=== PATIENT | female | born 1950 | race African-American/Black ===

== ENCOUNTER 2022-02-24 14:20 | Emergency (ER) | payer OTHER ==
[~2022-02-24] VITALS: Ht 170.2 cm; Wt 86.0 kg
[~2022-02-24 14:20] MED LIST: ASPI-986 PO; ATEN50TA PO; FERR-63 PO; FURO40TA5 PO; LOSA50TA41 PO
[2022-02-24 16:45] LABS: BASOPHILS % 0.8 % (0.0-2.0); EOSINOPHILS % 0.5 % (0.0-5.0); HEMATOCRIT. 33.7 % (36.0-48.0); LYMPHOCYTES % 21.9 % (20.0-50.0); MEAN CORPUSCULAR HEMOGLOBIN 26.6 pg (28.0-32.0); MEAN CORPUSCULAR VOLUME 81.7 fL (81.0-99.0); MEAN PLATELET VOLUME 9.7 fl (7.4-10.4); MONOCYTES % 12.2 % (2.0-8.0); NEUTROPHILS % 64.6 % (40.0-76.0); PLATELET 150 x1000/uL (130-400); RED BLOOD CELL COUNT 4.13 mill/uL (4.2-5.4); RED CELL DISTRIBUTION WIDTH 15.2 % (11.6-14.6)
[2022-02-24 16:49] LABS: CHLORIDE 106 mEq/L (98-107)
[2022-02-24 18:23] VITALS: BP 128/82
== END 2022-02-24 19:02 | disposition left against medical advice (07) ==
LOC: ER 14:20
DX: J81.0 Acute pulmonary edema (principal); I48.0 Paroxysmal atrial fibrillation; I10 Essential (primary) hypertension; D64.9 Anemia, unspecified; I69.351 Hemiplegia and hemiparesis following cerebral infarction affecting right dominant side; Z87.442 Personal history of urinary calculi; Z79.01 Long term (current) use of anticoagulants; Z79.82 Long term (current) use of aspirin
CPT/HCPCS: 36415; 71045; 80048; 83880; 84484; 85025; 85379; 99284

== ENCOUNTER 2022-02-26 08:30 | Inpatient (IN) | payer OTHER, MEDICAID ==
[~2022-02-26] VITALS: Ht 165.1 cm; Wt 89.4 kg
[2022-02-26 09:41] LABS: BASOPHILS % 0.7 % (0.0-2.0); EOSINOPHILS % 0.2 % (0.0-5.0); HEMATOCRIT. 35.2 % (36.0-48.0); HEMOGLOBIN. 11.2 g/dL (12.0-16.0); LYMPHOCYTES % 15.2 % (20.0-50.0); MEAN PLATELET VOLUME 9.3 fl (7.4-10.4); MONOCYTES % 12.3 % (2.0-8.0); NEUTROPHILS % 71.6 % (40.0-76.0); PLATELET 149 x1000/uL (130-400); RED BLOOD CELL COUNT 4.29 mill/uL (4.2-5.4); RED CELL DISTRIBUTION WIDTH 15.5 % (11.6-14.6)
[2022-02-26 09:47] LABS: CHLORIDE 109 mEq/L (98-107)
[2022-02-26] MEDS ORDERED: GUAIFENESIN 200MG/10ML SUGAR FREE UDC PO PRN (11:30)
[2022-02-26] MEDS ORDERED: ACETAMINOPHEN 325MG TABLET PO PRN (11:30)
[2022-02-26] MEDS ORDERED: ONDANSETRON HCL 4MG/2ML INJ IV PRN (11:30)
[2022-02-26] MEDS ORDERED: MAGNESIUM/ALUMINUM HYDROXIDE/SIMETHICONE 30ML UDC PO PRN (11:30)
[2022-02-26] MEDS ORDERED: CLONIDINE 0.1MG TABLET PO PRN (11:30)
[2022-02-26] MEDS ORDERED: LORAZEPAM 2MG/ML CPJ IV PRN (11:30)
[2022-02-26] MEDS ORDERED: MORPHINE SULFATE 2 MG/ML CPJ (NOT FOR IM USE) IV PRN (11:30)
[2022-02-26] MEDS ORDERED: ENOXAPARIN 40MG/0.4ML SYR SUBCUT SCH ×2 (11:30→13:00)
[2022-02-26] MEDS ORDERED: DIPHENHYDRAMINE 50MG/ML VIAL IV PRN (11:30)
[2022-02-26] MEDS ORDERED: DOCUSATE SODIUM 100MG CAPSULE PO PRN (11:30)
[2022-02-26] MEDS ORDERED: HYDRALAZINE 20MG/ML VIAL IV PRN (11:30)
[2022-02-26] MEDS ORDERED: HYDROCODONE/ACETAMINOPHEN 5/325MG TABLET PO PRN (11:30)
[2022-02-26] MEDS ORDERED: NALOXONE HCL 0.4MG/ML VIAL IV PRN (12:00)
[2022-02-26] MEDS: ASPIRIN 81MG TABLET PO SCH (13:00)
[2022-02-26] MEDS: FUROSEMIDE 40MG/4ML VIAL IVP SCH ×2 (13:15→17:00)
[2022-02-26 13:29] LABS: INR 1.1; PROTHROMBIN TIME 11.5 sec (9.6-11.0)
[2022-02-26] MEDS: SPIRONOLACTONE 25MG TABLET PO SCH (14:00)
[2022-02-26] MEDS: SODIUM CHLORIDE 0.9% INJ 3ML FLUSH IVF SCH ×2 (14:00→21:47)
[2022-02-26 14:42] LABS: CREATINE KINASE MB FRACTION 1.6 ng/mL (0.5-3.6)
[2022-02-26] MEDS ORDERED: ENOXAPARIN 40MG/0.4ML SYR SUBCUT NR (15:30)
[2022-02-26 17:07] LABS: CLARITY URINE CLEAR (CLEAR); COLOR URINE YELLOW (YELLOW); KETONES URINE NEGATIVE (NEGATIVE); LEUKOCYTE ESTERASE URINE NEGATIVE (NEGATIVE); NITRITE URINE NEGATIVE (NEGATIVE); OCCULT BLOOD URINE NEGATIVE (NEGATIVE); PH URINE 5.5 (4.5-8.0); PROTEIN URINE NEGATIVE (NEGATIVE); UROBILINOGEN URINE 0.2 E.U./dL (0.2-1.0)
[2022-02-26 17:28] LABS: *AMPHETAMINES SCREEN URINE NEGATIVE (NEGATIVE); *BARBITURATES SCREEN URINE NEGATIVE (NEGATIVE); *BENZODIAZEPINES SCREEN URINE NEGATIVE (NEGATIVE); *COCAINE SCREEN URINE NEGATIVE (NEGATIVE); CANNABINOID URINE SCREEN NEGATIVE (NEGATIVE); METHADONE URINE SCREEN NEGATIVE (NEGATIVE); OPIATES URINE SCREEN NEGATIVE (NEGATIVE); PHENCYCLIDINE URINE SCREEN NEGATIVE (NEGATIVE)
[2022-02-26] MEDS: DILTIAZEM HCL 60MG TABLET PO SCH (18:00)
[2022-02-26 18:45] VITALS: BP 116/74
[2022-02-26 20:00] VITALS: BP 124/84
[2022-02-26] MEDS: ENOXAPARIN 100MG/ML SYR SUBCUT SCH (21:47)
[2022-02-26] MEDS: IPRATROPIUM/ALBUTEROL 0.5-3(2.5)MG/3ML NEB HHN PRN (23:12)
[2022-02-26 23:36] LABS: CREATINE KINASE MB FRACTION 1.6 ng/mL (0.5-3.6)
[2022-02-27] VITALS (7 sets, daily range): BP systolic 106–136; BP diastolic 71–84
[2022-02-27] MEDS: DILTIAZEM HCL 60MG TABLET PO SCH ×5 (00:14→23:14)
[2022-02-27] MEDS ORDERED: FURO20TA4 MT (04:49)
[2022-02-27] MEDS ORDERED: ASPI-1497 MT (04:49)
[2022-02-27] MEDS ORDERED: ATEN100T MT (04:51)
[2022-02-27] MEDS ORDERED: ATOR10TA69 MT (04:51)
[2022-02-27] MEDS ORDERED: POTA25TA8 MT (04:51)
[2022-02-27] MEDS: IPRATROPIUM/ALBUTEROL 0.5-3(2.5)MG/3ML NEB HHN PRN (05:23)
[2022-02-27] MEDS: SODIUM CHLORIDE 0.9% INJ 3ML FLUSH IVF SCH ×3 (05:42→20:55)
[2022-02-27 06:56] LABS: BASOPHILS % 0.6 % (0.0-2.0); EOSINOPHILS % 0.4 % (0.0-5.0); HEMATOCRIT. 34.1 % (36.0-48.0); HEMOGLOBIN. 10.8 g/dL (12.0-16.0); MEAN CORPUSCULAR HEMOGLOBIN 26.2 pg (28.0-32.0); MEAN PLATELET VOLUME 9.9 fl (7.4-10.4); MONOCYTES % 11.6 % (2.0-8.0); NEUTROPHILS % 62.4 % (40.0-76.0); PLATELET 161 x1000/uL (130-400); RED BLOOD CELL COUNT 4.11 mill/uL (4.2-5.4); RED CELL DISTRIBUTION WIDTH 16.2 % (11.6-14.6)
[2022-02-27 07:44] LABS: CHLORIDE 107 mEq/L (98-107)
[2022-02-27] MEDS: FUROSEMIDE 40MG/4ML VIAL IVP SCH ×2 (09:11→17:46)
[2022-02-27] MEDS: SPIRONOLACTONE 25MG TABLET PO SCH (09:12)
[2022-02-27] MEDS: ENOXAPARIN 100MG/ML SYR SUBCUT SCH ×2 (09:12→20:55)
[2022-02-27] MEDS: ASPIRIN 81MG TABLET PO SCH (09:12)
[2022-02-27] MEDS: ALBUTEROL 6.7GM HFA INHALER ORI PRN ×2 (14:51→21:01)
[2022-02-28] VITALS: BP 128/74
[2022-02-28 04:00] VITALS: BP 140/85
[2022-02-28] MEDS: DILTIAZEM HCL 60MG TABLET PO SCH ×3 (05:16→18:00)
[2022-02-28] MEDS: SODIUM CHLORIDE 0.9% INJ 3ML FLUSH IVF SCH ×3 (05:16→21:09)
[2022-02-28 08:00] VITALS: BP 130/58
[2022-02-28] MEDS: FUROSEMIDE 40MG/4ML VIAL IVP SCH ×2 (08:48→17:23)
[2022-02-28] MEDS: APIXABAN 5 MG TABLET PO SCH ×2 (08:48→17:23)
[2022-02-28] MEDS: ASPIRIN 81MG TABLET PO SCH (08:48)
[2022-02-28] MEDS: SPIRONOLACTONE 25MG TABLET PO SCH (08:50)
[2022-02-28] MEDS: CARVEDILOL 3.125 MG TABLET PO SCH ×2 (09:30→21:00)
[2022-02-28 12:00] VITALS: BP 117/65
[2022-02-28] MEDS: SILDENAFIL CITRATE 20MG TABLET PO SCH ×2 (14:00→21:08)
[2022-02-28 16:00] VITALS: BP 114/91
[2022-02-28 20:00] VITALS: BP 111/66
[2022-03-01] VITALS: BP 119/67
[2022-03-01 04:00] VITALS: BP 105/70
[2022-03-01] MEDS: SILDENAFIL CITRATE 20MG TABLET PO SCH (05:10)
[2022-03-01] MEDS: SODIUM CHLORIDE 0.9% INJ 3ML FLUSH IVF SCH (05:10)
[2022-03-01] MEDS: DILTIAZEM HCL 60MG TABLET PO SCH ×2 (05:12)
[2022-03-01 06:17] LABS: BASOPHILS % 0.5 % (0.0-2.0); EOSINOPHILS % 1.6 % (0.0-5.0); HEMOGLOBIN. 10.6 g/dL (12.0-16.0); MEAN CORPUSCULAR HEMOGLOBIN 26.6 pg (28.0-32.0); MEAN CORPUSCULAR VOLUME 82.3 fL (81.0-99.0); MEAN PLATELET VOLUME 9.5 fl (7.4-10.4); MONOCYTES % 10.9 % (2.0-8.0); PLATELET 156 x1000/uL (130-400); RED BLOOD CELL COUNT 4.01 mill/uL (4.2-5.4); RED CELL DISTRIBUTION WIDTH 16.8 % (11.6-14.6)
[2022-03-01 08:00] VITALS: BP 98/70
[2022-03-01] MEDS: CARVEDILOL 3.125 MG TABLET PO SCH (09:00)
[2022-03-01] MEDS: SPIRONOLACTONE 25MG TABLET PO SCH (09:00)
[2022-03-01] MEDS: APIXABAN 5 MG TABLET PO SCH (10:19)
[2022-03-01] MEDS: ASPIRIN 81MG TABLET PO SCH (10:19)
[2022-03-01] MEDS: FUROSEMIDE 40MG/4ML VIAL IVP SCH (10:19)
[2022-03-01 12:00] VITALS: BP 100/75
[2022-03-01 14:48] VITALS: BP 106/75
== END 2022-03-01 17:25 | disposition home or self-care (01) | DRG 291 ==
LOC: ER 08:30 → EDBEDREQTM 10:29 → 8WST 11:21 → EDBEDREQTM 11:23 → EDBEDREQ 11:23 → ENRESERV 17:19
PROVIDERS: ADMIT Internal Medicine; ATTEND Internal Medicine
DX: I11.0 Hypertensive heart disease with heart failure (principal); I50.33 Acute on chronic diastolic (congestive) heart failure; I48.92 Unspecified atrial flutter; I48.0 Paroxysmal atrial fibrillation; E78.5 Hyperlipidemia, unspecified; I25.10 Atherosclerotic heart disease of native coronary artery without angina pectoris; I27.29 Other secondary pulmonary hypertension; I27.81 Cor pulmonale (chronic); E78.00 Pure hypercholesterolemia, unspecified; R74.01 Elevation of levels of liver transaminase levels; I42.9 Cardiomyopathy, unspecified; I34.0 Nonrheumatic mitral (valve) insufficiency; I36.1 Nonrheumatic tricuspid (valve) insufficiency; Z86.73 Personal history of transient ischemic attack (TIA), and cerebral infarction without residual deficits; Z87.891 Personal history of nicotine dependence; Z79.82 Long term (current) use of aspirin; Z79.899 Other long term (current) drug therapy
CPT/HCPCS: 36415; 71045; 80048; 80053; 80061; 80305; 81003; 82550; 82553; 83735; 83880; 84484; 85025; 93005; 93306; 93970; 94640; 99285; J1650; J1940; J2060; J2270

== ENCOUNTER 2022-07-26 15:46 | Emergency (ER) | payer MEDICARE, OTHER ==
[~2022-07-26] VITALS: Ht 160 cm; Wt 77.0 kg
[~2022-07-26 15:46] MED LIST changes: +ASPI-1497 MT; -ASPI-986 PO; -ATEN50TA PO; +ATOR10TA69 MT; -FERR-63 PO; +FURO20TA4 MT; -FURO40TA5 PO; -LOSA50TA41 PO; +POTA25TA8 MT
[2022-07-26] MEDS ORDERED: SODIUM CHLORIDE 0.9% 1,000 ML IV ONE (16:45)
[2022-07-26] MEDS ORDERED: DEXAMETHASONE 10 MG/ML VIAL IV ONE (16:45)
[2022-07-26] MEDS ORDERED: MORPHINE SULFATE 4 MG/ML CPJ (NOT FOR IM USE) IV ONE ×2 (16:45→18:30)
[2022-07-26 17:16] LABS: HEMATOCRIT. 36.4 % (36.0-48.0); HEMOGLOBIN. 11.8 g/dL (12.0-16.0); MEAN CORPUSCULAR HEMOGLOBIN 27.6 pg (28.0-32.0); MEAN CORPUSCULAR VOLUME 84.9 fL (81.0-99.0); MEAN PLATELET VOLUME 10.9 fl (7.4-10.4); PLATELET 173 x1000/uL (130-400); RED BLOOD CELL COUNT 4.29 mill/uL (4.2-5.4)
[2022-07-26 17:28] LABS: INR 1.1; PROTHROMBIN TIME 11.4 sec (9.6-11.0)
[2022-07-26 17:33] LABS: CHLORIDE 100 mEq/L (98-107)
[2022-07-26 17:34] LABS: PLATELET ESTIMATE NORMAL
[2022-07-26] MEDS ORDERED: OXYC-89 MT (21:19)
[2022-07-26] MEDS ORDERED: TIZA-191 MT (21:19)
[2022-07-26 22:30] VITALS: BP 147/82
== END 2022-07-26 22:52 | disposition home or self-care (01) ==
LOC: ER 15:46
DX: M54.41 Lumbago with sciatica, right side (principal); M47.897 Other spondylosis, lumbosacral region; I10 Essential (primary) hypertension; I48.91 Unspecified atrial fibrillation; E78.00 Pure hypercholesterolemia, unspecified; Z86.73 Personal history of transient ischemic attack (TIA), and cerebral infarction without residual deficits; Z79.01 Long term (current) use of anticoagulants
CPT/HCPCS: 36415; 72131; 80053; 83605; 85025; 85610; 96361; 96374; 96375; 96376; 99285; J1100; J2270; J7030

== ENCOUNTER 2022-10-26 20:04 | Emergency (ER) | payer OTHER, MEDICAID ==
[~2022-10-26] VITALS: Ht 157.5 cm; Wt 69.0 kg
[~2022-10-26 20:04] MED LIST changes: +OXYC-89 MT; +TIZA-191 MT
[2022-10-26 21:10] LABS: BASOPHILS % 0.3 % (0.0-2.0); EOSINOPHILS % 0.3 % (0.0-5.0); HEMATOCRIT. 37.8 % (36.0-48.0); HEMOGLOBIN. 12.2 g/dL (12.0-16.0); LYMPHOCYTES % 12.6 % (20.0-50.0); MEAN CORPUSCULAR HEMOGLOBIN 28.3 pg (28.0-32.0); MEAN CORPUSCULAR VOLUME 87.5 fL (81.0-99.0); MEAN PLATELET VOLUME 10.1 fl (7.4-10.4); MONOCYTES % 7.9 % (2.0-8.0); NEUTROPHILS % 78.9 % (40.0-76.0); PLATELET 173 x1000/uL (130-400); RED BLOOD CELL COUNT 4.32 mill/uL (4.2-5.4); RED CELL DISTRIBUTION WIDTH 15.9 % (11.6-14.6)
[2022-10-26 21:15] LABS: CHLORIDE 104 mEq/L (98-107)
[2022-10-26] MEDS ORDERED: SODIUM CHLORIDE 0.9% 500 ML IV ONE (23:30)
[2022-10-27 06:00] VITALS: BP 151/96
== END 2022-10-27 06:45 | disposition home or self-care (01) ==
LOC: ER 20:04
DX: R19.7 Diarrhea, unspecified (principal); I10 Essential (primary) hypertension; E78.00 Pure hypercholesterolemia, unspecified; I48.91 Unspecified atrial fibrillation; Z79.82 Long term (current) use of aspirin; Z86.73 Personal history of transient ischemic attack (TIA), and cerebral infarction without residual deficits
CPT/HCPCS: 36415; 71045; 80053; 83690; 83880; 84484; 85025; 93005; 99285; J7040

== ENCOUNTER 2022-10-31 22:47 | Inpatient (IN) | payer OTHER, MEDICAID ==
[~2022-10-31] VITALS: Ht 172.7 cm; Wt 83.0 kg
[2022-10-31 23:51] LABS: BASOPHILS % 0.5 % (0.0-2.0); EOSINOPHILS % 0.6 % (0.0-5.0); HEMATOCRIT. 32.3 % (36.0-48.0); HEMOGLOBIN. 9.9 g/dL (12.0-16.0); LYMPHOCYTES % 13.3 % (20.0-50.0); MEAN CORPUSCULAR HEMOGLOBIN 28.1 pg (28.0-32.0); MEAN CORPUSCULAR VOLUME 91.9 fL (81.0-99.0); MEAN PLATELET VOLUME 10.3 fl (7.4-10.4); MONOCYTES % 9.3 % (2.0-8.0); NEUTROPHILS % 76.3 % (40.0-76.0); PLATELET 165 x1000/uL (130-400); RED BLOOD CELL COUNT 3.52 mill/uL (4.2-5.4); RED CELL DISTRIBUTION WIDTH 16.6 % (11.6-14.6)
[2022-11-01 02:12] LABS: CHLORIDE 102 mEq/L (98-107)
[2022-11-01 02:16] LABS: INR 1.2; PROTHROMBIN TIME 12.8 sec (9.6-11.0)
[2022-11-01] MEDS ORDERED: SODIUM CHLORIDE 0.9% 1,000 ML IV NR (02:30)
[2022-11-01 02:48] LABS: CLARITY URINE TURBID (CLEAR); COLOR URINE DARK YELLOW (YELLOW); KETONES URINE NEGATIVE (NEGATIVE); LEUKOCYTE ESTERASE URINE 2+ (NEGATIVE); NITRITE URINE POSITIVE (NEGATIVE); OCCULT BLOOD URINE 3+ (NEGATIVE); PROTEIN URINE 3+ (NEGATIVE); SPECIFIC GRAVITY URINE 1.018 (1.005-1.030)
[2022-11-01] MEDS ORDERED: CEFTRIAXONE 1 G PREMIX 50 ML IV NR (03:00)
[2022-11-01 09:45] VITALS: BP 152/105
[2022-11-01 10:00] VITALS: BP 152/105
[2022-11-01] MEDS ORDERED: ONDANSETRON HCL 4MG/2ML INJ IV PRN (10:45)
[2022-11-01] MEDS ORDERED: ACETAMINOPHEN 325MG TABLET PO PRN (10:45)
[2022-11-01] MEDS: ASPIRIN 81MG TABLET PO SCH (11:51)
[2022-11-01 12:00] VITALS: BP 149/87
[2022-11-01] MEDS ORDERED: ALLO100T MT (12:40)
[2022-11-01] MEDS ORDERED: APIX5TAB MT (12:40)
[2022-11-01] MEDS ORDERED: LORA10TA7 PO (12:40)
[2022-11-01] MEDS ORDERED: MULT-1146 MT (12:40)
[2022-11-01] MEDS ORDERED: SACU1TAB MT (12:40)
[2022-11-01] MEDS ORDERED: ATOR20TA65 MT (12:40)
[2022-11-01] MEDS ORDERED: CHOL2000 (12:40)
[2022-11-01] MEDS ORDERED: SPIR25TA6 MT (12:40)
[2022-11-01] MEDS ORDERED: ATEN100T MT (12:40)
[2022-11-01] MEDS ORDERED: OMEP-265 MT (12:40)
[2022-11-01 16:00] VITALS: BP 142/94
[2022-11-01 16:58] LABS: CREATINE KINASE 59 IU/L (26-192)
[2022-11-01 20:00] VITALS: BP 92/56
[2022-11-01] MEDS ORDERED: ALBUTEROL (0.083%) 2.5MG/3ML NEB HHN PRN (20:30)
[2022-11-01] MEDS ORDERED: ALBUTEROL 6.7GM HFA INHALER ORI PRN (20:30)
[2022-11-01] MEDS ORDERED: FUROSEMIDE 20MG/2ML VIAL IVP NR (20:30)
[2022-11-01] MEDS ORDERED: ATORVASTATIN CALCIUM 40MG TABLET PO SCH (21:00)
[2022-11-01] MEDS: ENOXAPARIN 80MG/0.8ML SYR SUBCUT SCH (21:35)
[2022-11-02] VITALS (10 sets, daily range): BP systolic 129–152; BP diastolic 79–96
[2022-11-02] MEDS: ENOXAPARIN 80MG/0.8ML SYR SUBCUT SCH ×2 (06:29→17:57)
[2022-11-02] MEDS: FUROSEMIDE 40MG TABLET PO SCH (08:11)
[2022-11-02] MEDS: ASPIRIN 81MG TABLET PO SCH (08:11)
[2022-11-02] MEDS ORDERED: FUROSEMIDE 20MG TABLET PO SCH (09:00)
[2022-11-02 16:27] LABS: BASOPHILS % 0.4 % (0.0-2.0); EOSINOPHILS % 2.3 % (0.0-5.0); HEMATOCRIT. 36.9 % (36.0-48.0); HEMOGLOBIN. 11.8 g/dL (12.0-16.0); LYMPHOCYTES % 19.5 % (20.0-50.0); MEAN CORPUSCULAR VOLUME 87.6 fL (81.0-99.0); MEAN PLATELET VOLUME 10.7 fl (7.4-10.4); MONOCYTES % 10.1 % (2.0-8.0); NEUTROPHILS % 67.7 % (40.0-76.0); PLATELET 188 x1000/uL (130-400); RED BLOOD CELL COUNT 4.22 mill/uL (4.2-5.4); RED CELL DISTRIBUTION WIDTH 16.3 % (11.6-14.6)
[2022-11-02 16:46] LABS: CHLORIDE 103 mEq/L (98-107)
[2022-11-02 16:52] LABS: INR 1.2; PROTHROMBIN TIME 12.6 sec (9.6-11.0)
[2022-11-02] MEDS: SPIRONOLACTONE 25MG TABLET PO SCH (17:56)
[2022-11-02] MEDS: ATENOLOL 50 MG TABLET PO SCH (21:10)
[2022-11-02] MEDS: ATORVASTATIN CALCIUM 40MG TABLET PO SCH (21:10)
[2022-11-03] VITALS: BP 125/60
[2022-11-03 04:00] VITALS: BP 134/79
[2022-11-03] MEDS: ENOXAPARIN 80MG/0.8ML SYR SUBCUT SCH ×2 (05:58→17:58)
[2022-11-03 08:00] VITALS: BP_SYST 131; BP_SYST 135; BP_SYST 137; BP_DIAS 66; BP_DIAS 67
[2022-11-03] MEDS ORDERED: CEFTRIAXONE 1 G PREMIX 50 ML IV SCH (08:15)
[2022-11-03] MEDS ORDERED: LEVO-65 MT (08:16)
[2022-11-03] MEDS: ASPIRIN 81MG TABLET PO SCH (09:04)
[2022-11-03] MEDS: FUROSEMIDE 40MG TABLET PO SCH (09:05)
[2022-11-03] MEDS: SPIRONOLACTONE 25MG TABLET PO SCH (09:05)
[2022-11-03] MEDS: ATENOLOL 50 MG TABLET PO SCH ×2 (09:05→21:20)
[2022-11-03] MEDS: SACUBITRIL/VALSARTAN 24MG/26MG TABLET PO SCH ×2 (09:12→17:57)
[2022-11-03] MEDS: CEFTRIAXONE 1,000 MG in DEXTROSE 5% WATER 50 ML IV SCH (09:12)
[2022-11-03 12:00] VITALS: BP 134/78
[2022-11-03 16:00] VITALS: BP 133/70
[2022-11-03 20:00] VITALS: BP 110/79
[2022-11-03] MEDS: ATORVASTATIN CALCIUM 40MG TABLET PO SCH (21:20)
[2022-11-04] VITALS: BP 133/83
[2022-11-04 04:00] VITALS: BP 137/72
[2022-11-04] MEDS: ENOXAPARIN 80MG/0.8ML SYR SUBCUT SCH ×2 (06:20→16:44)
[2022-11-04 06:42] LABS: BASOPHILS % 1.1 % (0.0-2.0); EOSINOPHILS % 1.9 % (0.0-5.0); HEMATOCRIT. 38.5 % (36.0-48.0); HEMOGLOBIN. 12.1 g/dL (12.0-16.0); LYMPHOCYTES % 12.1 % (20.0-50.0); MEAN CORPUSCULAR HEMOGLOBIN 27.8 pg (28.0-32.0); MEAN CORPUSCULAR VOLUME 88.8 fL (81.0-99.0); MEAN PLATELET VOLUME 10.7 fl (7.4-10.4); MONOCYTES % 7.2 % (2.0-8.0); NEUTROPHILS % 77.7 % (40.0-76.0); PLATELET 205 x1000/uL (130-400); RED BLOOD CELL COUNT 4.33 mill/uL (4.2-5.4)
[2022-11-04 06:58] LABS: CHLORIDE 101 mEq/L (98-107)
[2022-11-04 08:20] VITALS: BP 127/89
[2022-11-04] MEDS ORDERED: COLC0.6C3 MT (08:24)
[2022-11-04] MEDS: SPIRONOLACTONE 25MG TABLET PO SCH (08:28)
[2022-11-04] MEDS: FUROSEMIDE 40MG TABLET PO SCH (08:28)
[2022-11-04] MEDS: ASPIRIN 81MG TABLET PO SCH (08:28)
[2022-11-04] MEDS: ATENOLOL 50 MG TABLET PO SCH (08:28)
[2022-11-04] MEDS: CEFTRIAXONE 1,000 MG in DEXTROSE 5% WATER 50 ML IV SCH (08:31)
[2022-11-04] MEDS: SACUBITRIL/VALSARTAN 24MG/26MG TABLET PO SCH ×2 (08:31→16:44)
[2022-11-04] MEDS ORDERED: COLCHICINE 0.6MG TABLET PO SCH ×2 (09:30→17:00)
[2022-11-04 11:18] VITALS: BP 116/73
[2022-11-04] MEDS ORDERED: PREDNISONE 20MG TABLET PO SCH (13:45)
[2022-11-04 15:25] VITALS: BP 116/75
[2022-11-04 16:00] VITALS: BP 112/61
== END 2022-11-04 16:55 | disposition home or self-care (01) | DRG 65 ==
LOC: ER 22:52 → MICUSO 11-01 01:00 → 8WST 11-01 10:14
PROVIDERS: ADMIT Internal Medicine; ATTEND Internal Medicine
DX: I63.9 Cerebral infarction, unspecified (principal); I42.9 Cardiomyopathy, unspecified; I50.32 Chronic diastolic (congestive) heart failure; N39.0 Urinary tract infection, site not specified; I48.19 Other persistent atrial fibrillation; I48.92 Unspecified atrial flutter; R47.01 Aphasia; E78.00 Pure hypercholesterolemia, unspecified; E78.5 Hyperlipidemia, unspecified; Z20.822 Contact with and (suspected) exposure to COVID-19; I69.331 Monoplegia of upper limb following cerebral infarction affecting right dominant side; I27.29 Other secondary pulmonary hypertension; I34.0 Nonrheumatic mitral (valve) insufficiency; I27.81 Cor pulmonale (chronic); I25.10 Atherosclerotic heart disease of native coronary artery without angina pectoris; I11.0 Hypertensive heart disease with heart failure; R29.700 NIHSS score 0; Z82.49 Family history of ischemic heart disease and other diseases of the circulatory system; Z82.3 Family history of stroke; Z79.899 Other long term (current) drug therapy; Z79.01 Long term (current) use of anticoagulants; Z87.891 Personal history of nicotine dependence
CPT/HCPCS: 36415; 70544; 70547; 70551; 71045; 80053; 80061; 81003; 82550; 83036; 83735; 83880; 84443; 84484; 85025; 87077; 87186; 87426; 93005; 94640; 97161; 97166; 97535; 99285; J0696; J1650; J1940; J7060; J7512

== ENCOUNTER 2023-11-08 09:09 | Emergency (ER) | payer MEDICARE, MEDICAID ==
[~2023-11-08] VITALS: Ht 160 cm; Wt 59.0 kg
[~2023-11-08 09:09] MED LIST changes: +ALLO100T MT; +ATEN100T MT; -FURO20TA4 MT; +MULT-1146 MT; -OXYC-89 MT; +SACU1TAB MT; -TIZA-191 MT
[2023-11-08 09:14] VITALS: O2SAT 99
[2023-11-08] MEDS ORDERED: LORAZEPAM 1MG TABLET PO ONE (09:30)
[2023-11-08] MEDS ORDERED: LORA-249 MT (10:55)
[2023-11-08 16:13] VITALS: BP 155/85; PULSE 85; RESP 20; TEMP 98
== END 2023-11-08 16:14 | disposition home or self-care (01) ==
LOC: ER 09:09
DX: F41.9 Anxiety disorder, unspecified (principal); Z86.73 Personal history of transient ischemic attack (TIA), and cerebral infarction without residual deficits
CPT/HCPCS: 99283